=== PATIENT | male | born 1975 | race Caucasian/White ===

== ENCOUNTER 2022-06-21 10:43 | Emergency (ER) | payer BC ==
[~2022-06-21] VITALS: Ht 177.8 cm; Wt 110.7 kg
--- NOTE | 2022-06-21 10:58 | NUR ---
[id number] FROM HOME C/O BACK PAIN P/S ND RIGHT FOOT CUT S/P FALL FROM [facility] 5FT HIGH, DENIES LOC. DR AJ AT BEDSIDE. AWAITING MD ORDERS.
[2022-06-21] MEDS: TDAP [DIPH/PERTUSSIS/TET] 0.5 ML VIAL IM ONE (11:58)
[2022-06-21] MEDS ORDERED: KETOROLAC TROMETHAMINE INJ 30 MG/ML VIAL ONE ×2 (12:29→18:19)
[2022-06-21] MEDS ORDERED: TDAP [DIPH/PERTUSSIS/TET] 0.5 ML VIAL IM ONE (12:30)
[2022-06-21] MEDS: KETOROLAC TROMETHAMINE INJ 60 MG/2 ML VIAL IM ONE (12:57)
[2022-06-21] MEDS: CYCLOBENZAPRINE 10 MG TABLET PO ONE (12:58)
--- NOTE | 2022-06-21 13:19 | NUR ---
CONTACTED DR. NICOLE
[2022-06-21] MEDS ORDERED: MORPHINE SULFATE INJ 2 MG/ML DISP.SYRIN ONE (13:47)
[2022-06-21 13:58] LABS: BASOPHILS % (AUTO) 0.2 % (0.0-2.0); EOSINOPHILS % (AUTO) 0.4 % (0.0-6.0); HEMATOCRIT 46 % (39-51); HEMOGLOBIN 15.4 g/dL (13.5-17.5); LYMPHOCYTES # (AUTO) 0.9 K/uL (0.8-4.8); LYMPHOCYTES % (AUTO) 7.9 % (20.0-44.0); MEAN CORPUSCULAR HGB CONC 33 g/dl (31.0-36.0); MEAN CORPUSCULAR VOLUME 94 fL (80-96); MONOCYTES # (AUTO) 0.6 K/uL (0.1-1.30); MONOCYTES % (AUTO) 5.5 % (2.0-12.0); NEUTROPHILS # (AUTO) 9.5 K/uL (1.8-8.9); PLATELET COUNT (AUTO) 182 K/uL (150-450); RED BLOOD CELL COUNT(AUTO) 4.92 MIL/uL (4.5-6.0)
--- NOTE | 2022-06-21 14:04 | NUR ---
DR. NICOLE SPEAKING WITH DR. AJ.
[2022-06-21 14:06] LABS: CALCIUM, SERUM 8.7 mg/dL (8.5-10.1); POTASSIUM 3.7 mmol/L (3.5-5.1)
--- NOTE | 2022-06-21 14:14 | NUR ---
IV JOSHUA Donaldson AC 20G.
--- NOTE | 2022-06-21 14:23 | NUR ---
CAITLIN FROM [facility] [phone] REQUESTING FACE SHEET AND CLINICALS FAXED TO [phone]
--- NOTE | 2022-06-21 14:52 | NUR ---
COVID TEST COLLECTED AND SENT
[2022-06-21] MEDS: MORPHINE SULFATE INJ 2 MG/ML DISP.SYRIN IV ONE (15:06)
--- NOTE | 2022-06-21 15:55 | NUR ---
PT ROOM [address] CASTILLO NUMBER FOR REPORT [phone] CAITLIN LEWIS WILL CALL BACK WITH TRASNPORTATION INFORMATION
--- NOTE | 2022-06-21 16:23 | NUR ---
[facility] WILL COLLECT PT AT [phone] PER CAITLIN.
--- NOTE | 2022-06-21 17:15 | NUR ---
REPORT GIVEN TO LADONNA FOR ALLI
[2022-06-21] MEDS: KETOROLAC TROMETHAMINE INJ 30 MG/ML VIAL IV ONE (18:24)
--- NOTE | 2022-06-21 20:42 | NUR ---
FOLLOWED UP WITH [facility] FOR ETA [phone]
[2022-06-21] MEDS ORDERED: HYDROCODONE/APAP 5/325MG TABLET ONE (20:51)
[2022-06-21] MEDS: HYDROCODONE/APAP 5/325MG TABLET PO ONE (21:01)
[2022-06-21 21:09] VITALS: BP 131/80
--- NOTE | 2022-06-21 21:56 | NUR ---
[facility] AT BEDSIDE FOR TRANSPORTATION
== END 2022-06-21 22:14 | disposition short-term general hospital (02) ==
LOC: ER 10:47
DX: T14.8XXA Other injury of unspecified body region, initial encounter (principal); S91.111A Laceration without foreign body of right great toe without damage to nail, initial encounter; W17.89XA Other fall from one level to another, initial encounter; Y92.039 Unspecified place in apartment as the place of occurrence of the external cause; R00.0 Tachycardia, unspecified
CPT/HCPCS: 99285; 96374; 72131; 96375; 87426; 90471; 90715; 72100; 73660; 85025; 80048; 36415; 96372; J1885 ×2; J2270; C9803